=== PATIENT | female | born 1990 | race Hispanic/Latino ===

== ENCOUNTER 2019-09-27 23:59 | Inpatient (IN) | payer MEDICAID, OTHER ==
[2019-09-28 00:28] VITALS: BMI 31.6
[2019-09-28] MEDS ORDERED: hydrALAZINE 20 MG/ML VIAL SLOW IVP PRN ×3 (00:39→05:20)
[2019-09-28] MEDS ORDERED: Promethazine HCl 25 MG/ML VIAL IM PRN ×3 (00:43→05:20)
[2019-09-28] MEDS ORDERED: Ondansetron PF 4 MG/2 ML Vial IVP PRN ×3 (00:43→05:20)
[2019-09-28] MEDS ORDERED: Lactated Ringer's 1,000 ML IV SCH ×2 (00:45→02:00)
--- NOTE | 2019-09-28 00:50 | PDOC.LDHP ---
Labor and Delivery H&P Chief complaint: contractions HPI: 28 yo LAF presents c/o UCs since 9PM. Denies bleeding or SROM. Current gestational age (weeks): 36 Due date: 10/25/19 Dating criteria: last menstrual period Grav: 3 Para: 2 OB History Details: H/o C/S x2. PNC with Frankie w/o complaints. Current complications: none Abnormal US findings: No Past Medical History: None Current medications: pre- vitamins Previous surgical history: low tranverse CS (x2) Allergies/Adverse Reactions: Allergies Allergy/AdvReac Type Severity Reaction Status Date / Time No Known Allergies Allergy Verified 01/01/15 14:38 Social history: none - Physical Exam Vital signs reviewed and normal: yes General: breathing through contractions Heart: RRR Lungs: CTAB Abdomen: gravid Extremeties: trace edema FHT: category 1 [place] contractions every: UCs q 3 mins - Vaginal Exam cm dilated: 4 Effacement: 75% Station: -1 - Assessment L&D Assessment: term patient in labor - Plan Plan: admit to L&D, to OR for section, informed consent obtained, other (Dr. David notified and on the way)
[2019-09-28 01:00] LABS: Hemoglobin 12.3 g/dL (12.0-16.0); Mean Corpuscular HGB CONC 34.4 g/dL (32.0-36.0); Mean Corpuscular Hemoglobin 33.8 pg (27.0-31.0); Mean Corpuscular Volume 98.4 fL (78.0-98.0); Mean Platelet Volume 9.5 fL (7.4-10.4); Platelet Count 153 thou/uL (130-400); RBC Distribution Width 12.6 % (11.5-14.5); Red Blood Cell (RBC) Count 3.63 mill/uL (4.20-5.40); White Blood Cell (WBC) Count 12.6 thou/uL (4.8-10.8)
[2019-09-28] MEDS ORDERED: Bicitra 30 ML UDCUP PO SCH (01:00)
[2019-09-28] MEDS ORDERED: CEFAZOLIN 2 GM in Premix Bag 1 BAG IVPB SCH (01:00)
[2019-09-28] MEDS ORDERED: Bicitra 30 ML UDCUP ONE (01:15)
[2019-09-28] MEDS ORDERED: MORPHINE 5 MG/10 ML PF VIAL ONE (01:34)
[2019-09-28] MEDS ORDERED: Fentanyl 100 MCG/2 ML VIAL ONE (01:34)
[2019-09-28] MEDS ORDERED: PHENYLEPHRINE-NS 100 MCG/ML 10 ML SYRINGE ONE (01:35)
[2019-09-28] MEDS ORDERED: Ketorolac Tromethamine 30 MG/ML VIAL ONE (01:35)
[2019-09-28] MEDS ORDERED: Oxytocin 10 UNITS/ML VIAL ONE (01:35)
[2019-09-28] MEDS ORDERED: Ondansetron PF 4 MG/2 ML Vial ONE (01:35)
[2019-09-28] MEDS ORDERED: Dexamethasone 4 mg/ml Vial ONE (01:35)
[2019-09-28 01:39] LABS: HBSAg Index 0.16 S/CO (0-0.99); Hep B Surf Ag Non-Reactive S/CO (NonReactive)
[2019-09-28] MEDS ORDERED: L&D-Morphine 4 MG/ML VIAL SLOW IVP PRN (02:02)
[2019-09-28] MEDS ORDERED: Meperidine HCl/PF 25 MG/ML VIAL SLOW IVP PRN ×2 (02:02→05:10)
[2019-09-28] MEDS ORDERED: Ondansetron HCl/PF 4 MG/2 ML Vial IVP PRN (02:02)
[2019-09-28] MEDS ORDERED: HYDROmorphone 2 MG/ML VIAL SLOW IVP PRN (02:02)
[2019-09-28] MEDS ORDERED: Ketorolac Tromethamine 30 MG/ML VIAL IVP PRN (02:03)
[2019-09-28] MEDS ORDERED: Naloxone HCl 0.4 mg/ml Vial IV PRN (02:03)
[2019-09-28] MEDS ORDERED: Promethazine HCl 25 MG SUPP PR PRN (02:03)
[2019-09-28] MEDS ORDERED: Naloxone HCl 0.4 mg/ml Vial IVP PRN ×2 (02:03)
[2019-09-28] MEDS ORDERED: diphenhydrAMINE 50 MG/ML VIAL IVP PRN (02:03)
[2019-09-28] MEDS ORDERED: Methylergonovine 0.2 MG/ML VIAL ONE (02:08)
[2019-09-28] MEDS ORDERED: Communication Order-Pharmacy FS SCH (02:15)
[2019-09-28] MEDS ORDERED: Ketorolac Tromethamine 30 MG/ML VIAL IVP SCH (02:15)
--- NOTE | 2019-09-28 02:41 | PDOC.OPDEL ---
OB Operative/Delivery Note Delivery Dr/Surgeon: Roger David MD Assist: Bridgett Raya DO, PGY-2 Pre-Delivery Diagnosis: active labor Procedure/Post Delivery Dx: repeat low transverse CS Weeks gestation: 36 Anesthesia: spinal - Additional Findings/Plan Placenta delivered: manual removal findings: low transverse hysterotomy without extension, normal uterus, normal tubes, other (paratubal cyst on right ovary) Compilations/Other Findings: Date of Procedure: 09/28/2019 Attending Primary Surgeon: Roger David MD [place] Tender Surgeon: Bridgett Raya DO Procedure: Repeat low transverse caesarean section Preoperative Diagnosis: 1)Term intrauterine at 36 wga 2)Previous Postoperative Diagnosis: 1)same as above Anesthesia: spinal Indications: The patient is a 28 year old female at 36 weeks gestation who presents for a repeat scheduled . Procedure in Detail: After risks, benefits, and alternatives were explained to the patient, she gave informed consent. Pre-operative antibiotics included Cefazolin 2 gram IV. The patient was taken to the operating room and spinal anesthesia was initiated. She was placed in the supine position with a left tilt and prepped and draped in usual sterile fashion. A Pfannenstiel incision was made with a scalpel and carried down to the level of the fascia which was sharply nicked. The fascial cut was extended bilaterally with [place] sissors. The inferior and superior edges of the cut fascial edges were elevated with Nani clamps and the underlying rectus muscles were sharply and bluntly dissected free. The recti were divided digitally and retracted manually. The peritoneum was entered bluntly and retracted manually. Bladder blade was placed. A low transverse score was made with the scalpel and the uterus was entered in the midline with the scalpel. Clear fluid was seen. The hysterotomy was extended manually. The infant was noted to be vertex and was easily delivered by fundal pressure. Mouth and nares were bulb suctioned. Cord clamped and cut and grossly normal female infant was handed to waiting nurse. Cord blood was obtained. Placenta was manually extracted, found to be intact with 3 vessel cord and sent for pathology. The uterus was externalized and the endometrium was curetted with a dry lap. The uterus was closed with a running locking 0-Monocryl suture followed by a running non-locking 0-Vicryl imbricating suture. Following this hemostasis was noted. The abdomen was irrigated with saline and suctioned free of clots. The uterus was internalized and the hysterotomy was again noted to be hemostatic. The peritoneum was then closed with a running non-locking 3-0 Vicryl suture. The fascia was then closed with a running non-locking 0-PDS suture. The subcutaneous tissue was irrigated and there were no bleeders. The subdermal layer was then closed with simple interrupted 3-0 Vicryl suture. The skin was approximated with jose and a pressure dressing was placed. All counts were correct. The patient tolerated the procedure well and was taken to the recovery room in stable condition. Estimated Blood Loss: 450 ml, QBL pending Complications: None Specimens: Cord blood sent to lab for blood type. Placenta sent for pathology. Findings: Grossly normal female . Grossly normal placenta with 3 vessel cord. Drains: Mayer to gravity draining clear urine Post delivery plan: routine recovery
[2019-09-28 03:53] LABS: Syphilis Antibody Nonreactive (Nonreactive); Syphilis Antibody Index 0.03 S/CO (<1.00 Non-Reactive)
[2019-09-28] MEDS ORDERED: Methylergonovine 0.2 MG/ML VIAL IM SCH (04:00)
[2019-09-28] MEDS ORDERED: Meperidine HCl/PF 25 MG/ML VIAL ONE ×2 (04:12→05:10)
[2019-09-28] MEDS ORDERED: Morphine 4 MG/ML VIAL ONE (04:32)
[2019-09-28] MEDS ORDERED: Morphine 4 MG/ML VIAL SLOW IVP PRN (04:35)
[2019-09-28] MEDS ORDERED: NS / Oxytocin 40 units/1000ml 1,000 ML IV SCH (05:20)
[2019-09-28] MEDS ORDERED: diphenhydrAMINE 25 MG CAP PO PRN (05:20)
[2019-09-28] MEDS ORDERED: Meperidine HCl/PF 25 MG/ML VIAL IM PRN (05:20)
[2019-09-28] MEDS ORDERED: HYDROcodone/Acetaminophen 5/325 mg Tablet PO PRN (05:20)
[2019-09-28] MEDS ORDERED: Lanolin Ointment 7 GM TUBE TOP PRN (05:20)
[2019-09-28] MEDS ORDERED: Bisacodyl 10 MG SUPP PR PRN (05:20)
[2019-09-28] MEDS ORDERED: Adacel (T-DAP) 0.5 ML SYRINGE IM ONE (05:20)
[2019-09-28] MEDS: Docusate Calcium (SURFAK) 240 MG CAP PO SCH ×2 (09:49→20:38)
[2019-09-28] MEDS: Prenatal Vitamin 1 TAB PO SCH (09:49)
[2019-09-28] MEDS: Ferrous Sulfate 325 MG TAB PO SCH ×2 (09:49→22:24)
[2019-09-28] MEDS: Ketorolac Tromethamine 30 MG/ML VIAL IVP SCH ×3 (10:06→20:38)
[2019-09-28 11:56] LABS: SARS-CoV-2 MS2 Positive; SARS-CoV-2 N Gene Negative; SARS-CoV-2 S Gene Negative; SARS-CoV-2 by NAA Not Detected (NotDetected); SARS-CoV-2 orf1ab Negative
[2019-09-28] MEDS ORDERED: Sodium Chloride 0.9% 10 ML ONE (20:30)
[2019-09-28] MEDS: Simethicone Chewable 80 MG TAB PO PRN (20:38)
[2019-09-29] MEDS: Ibuprofen 800 MG TAB PO SCH ×3 (06:02→21:50)
[2019-09-29 06:16] LABS: Hemoglobin 10.9 g/dL (12.0-16.0); Mean Corpuscular HGB CONC 33.5 g/dL (32.0-36.0); Mean Corpuscular Hemoglobin 33.7 pg (27.0-31.0); Mean Platelet Volume 10.6 fL (7.4-10.4); Platelet Count 133 thou/uL (130-400); RBC Distribution Width 13.1 % (11.5-14.5); Red Blood Cell (RBC) Count 3.22 mill/uL (4.20-5.40); White Blood Cell (WBC) Count 11.1 thou/uL (4.8-10.8)
[2019-09-29] MEDS: Simethicone Chewable 80 MG TAB PO PRN ×2 (08:05→13:49)
[2019-09-29] MEDS: Docusate Calcium (SURFAK) 240 MG CAP PO SCH ×2 (08:05→21:50)
[2019-09-29] MEDS: Prenatal Vitamin 1 TAB PO SCH (08:05)
[2019-09-29] MEDS: Ferrous Sulfate 325 MG TAB PO SCH ×2 (08:05→22:48)
[2019-09-29] MEDS: HYDROcodone/Acetaminophen 5/325 mg Tablet PO PRN ×2 (13:45→18:24)
[2019-09-30] MEDS: Simethicone Chewable 80 MG TAB PO PRN (05:34)
[2019-09-30] MEDS: Ibuprofen 800 MG TAB PO SCH ×2 (05:34→14:07)
[2019-09-30] MEDS: HYDROcodone/Acetaminophen 5/325 mg Tablet PO PRN ×3 (05:35→14:13)
[2019-09-30] MEDS: Ferrous Sulfate 325 MG TAB PO SCH (07:38)
[2019-09-30 08:22] VITALS: BP 101/58; TEMP 97.9
[2019-09-30] MEDS: Prenatal Vitamin 1 TAB PO SCH (08:35)
[2019-09-30] MEDS: Docusate Calcium (SURFAK) 240 MG CAP PO SCH (08:35)
== END 2019-09-30 16:59 | disposition home or self-care (01) | DRG 788 ==
LOC: L&D/OP 23:59 → L&D 09-28 01:00 → 3SW 09-28 08:40
PROVIDERS: ADMIT Family Medicine; ATTEND Family Medicine
PROC: 10D00Z1 Extraction of Products of Conception, Low, Open Approach (ICD-10-PCS; principal; 2019-09-28)
PROC: 3E0234Z Introduction of Serum, Toxoid and Vaccine into Muscle, Percutaneous Approach (ICD-10-PCS; 2019-09-28)
DX: O34.211 Maternal care for low transverse scar from previous cesarean delivery (principal); Z3A.36 36 weeks gestation of pregnancy; Z37.0 Single live birth; O34.83 Maternal care for other abnormalities of pelvic organs, third trimester; N83.291 Other ovarian cyst, right side; Z23 Encounter for immunization
CPT/HCPCS: 36415; 51702; 85027; 86780; 86850; 86900; 86901; 87340; 87635; 88307; 90715; 99285; J0690; J1100; J1885; J2175; J2210; J2270; J2274; J2310; J2405; J2590; J3010; U0003

== ENCOUNTER 2023-04-23 22:45 | Emergency (ER) | payer MEDICAID, SELFPAY ==
[2023-04-23 23:25] LABS: #Eosinphils 0.1 thou/uL (0.0-0.7); #Monocytes 0.7 thou/uL (0.11-0.59); #Neutrophils 3.4 thou/uL (1.40-6.50); %Basophils 0.3 % (0.0-1.0); %Eosinophils 1.3 % (0.0-10.0); %Lymphocytes 41.2 % (21.0-51.0); %Monocytes 9.2 % (0.0-10.0); %Neutrophils 47.9 % (42.0-75.0); Hematocrit 37.6 % (36.0-47.0); Mean Corpuscular HGB CONC 34.6 g/dL (32.0-36.0); Mean Corpuscular Hemoglobin 31.8 pg (27.0-31.0); Mean Corpuscular Volume 91.9 fl (78.0-98.0); Mean Platelet Volume 11.6 fL (7.4-10.4); Platelet Count 236 10x3/uL (130-400); RBC Distribution Width 12.1 % (11.5-14.5); Red Blood Cell (RBC) Count 4.09 mill/uL (4.20-5.40); White Blood Cell (WBC) Count 7.1 10x3/uL (4.8-10.8)
[2023-04-23 23:36] LABS: BHCG - Serum Negative (NEGATIVE); Pregs Control Background? CLEAR/WHITE (CLR/WHITE); Pregs Control Bar Appear? YES (CONTROL BAR)
[2023-04-23] MEDS ORDERED: Ketorolac Tromethamine 30 MG (1 mL) VIAL ONE (23:38)
[2023-04-23] MEDS ORDERED: fentaNYL 50 mcg/mL 1 mL Vial ONE ×2 (23:38→23:57)
[2023-04-23] MEDS ORDERED: LORazepam 2 MG/ML SYR.(CARPUJECT) ONE (23:39)
[2023-04-23 23:51] LABS: ALT (SGPT) 11 U/L (8-55); AST (SGOT) 15 U/L (5-34); Albumin 4.1 g/dL (3.5-5.0); Alkaline Phosphatase 73 U/L (40-110); Anion Gap 12 mmol/L (10-20); BUN (Urea Nitrogen) 21 mg/dL (7.0-18.7); Bilirubin, Total 0.2 mg/dL (0.2-1.2); Calc. Creatinine Clearance 0 mL/min (70-130); Calcium 9.3 mg/dL (7.8-10.44); Carbon Dioxide 23 mmol/L (22-29); Chloride 107 mmol/L (98-107); Estimated GFR 109; Globulin 2.8 g/dL (2.4-3.5); Glucose 107 mg/dL (70-105); Potassium 3.8 mmol/L (3.5-5.1); Protein, Total 6.9 g/dL (6.0-8.3); Sodium 138 mmol/L (136-145)
[2023-04-24] MEDS ORDERED: Doxycycline 100 MG CAP ONE (02:13)
[2023-04-24] MEDS ORDERED: cefOXitin 2 GM in Sodium Chloride 0.9% 100 ML IVPB SCH (02:30)
[2023-04-24] MEDS ORDERED: Ondansetron PF 4 MG/2 ML Vial ONE (03:20)
[2023-04-24 03:40] LABS: Bacteria/HPF None Seen HPF (None Seen); Bilirubin Negative (Negative); Blood, Urine 2+ (Negative); CAUTI Indications for Culture Dysuria,urgency,freq; Clarity Clear (Clear); Glucose, Urine (Dipstick) Normal (Negative); Ketone, Urine Negative (Negative); Leukocyte 25 Leu/uL (Negative); Nitrite Negative (Negative); Protein, Urine (Dipstick) 20 mg/dL (Neg-Trace); RBC/HPF 21-50 HPF (0-3); Specific Gravity, Urine 1.032 (1.002-1.036); Urobilinogen Normal mg/dL (Less than 2)
[2023-04-24 03:42] LABS: Pregnancy Test - Urine (BHCG) Negative (Negative); Pregu Control Background? CLEAR/WHITE (CLR/WHITE); Pregu Control Bar Appear? YES (CONTROL BAR); Specific Gravity 1.032 (1.002-1.036)
[2023-04-24 03:43] LABS: Urine Culture Reflex No No
[2023-04-24 11:22] LABS: Chlam.trachomatis by PCR,Urine Not Detected (NotDetected); GC N.gonorrhoeae PCR,UrineVOID Not Detected (NotDetected)
== END 2023-04-24 04:10 | disposition home or self-care (01) ==
LOC: ERS 22:45
DX: N73.9 Female pelvic inflammatory disease, unspecified (principal); N28.89 Other specified disorders of kidney and ureter
CPT/HCPCS: 36415; 74177; 76856; 80053; 81001; 81025; 83690; 84703; 85025; 86850; 86900; 86901; 87086; 87480; 87491; 87510; 87591; 87660; 96374; 96375; J0694; J1885; J2060; J2405; J3010; J3490